=== PATIENT | female | born 1965 | race Caucasian/White ===

== ENCOUNTER 2020-06-12 22:19 | Outpatient (CLI) | payer OTHER | END 2020-06-12 22:20 | disposition home or self-care (01) | LOC: COV 22:19 | PROVIDERS: ATTEND Family Medicine | DX: R11.0 Nausea (principal); Z20.828 Contact with and (suspected) exposure to other viral communicable diseases ==

== ENCOUNTER 2021-07-22 08:00 | Outpatient (CLI) | payer OTHER | END 2021-07-22 23:59 | LOC: LAB 08:00 | PROVIDERS: ATTEND Internal Medicine | DX: Z20.822 Contact with and (suspected) exposure to COVID-19 (principal) ==

== ENCOUNTER 2022-11-03 14:25 | Outpatient (CLI) | payer BC ==
--- NOTE | 2022-11-03 14:28 | XRAY Report ---
PROCEDURE: Shoulder 3 View RT INDICATIONS: RIGHT SHOULDER PAIN TECHNIQUE: 3 views of the shoulder were acquired. COMPARISON: None. FINDINGS: Bones: No fractures or dislocations. No suspicious bony lesions. Visualized ribs appear intact. Mild acromioclavicular degenerative narrowing. Soft tissues: No suspicious soft tissue calcifications. IMPRESSION: Mild acromioclavicular degenerative narrowing. Reviewed by: Yojana Deleon MD on 11/03/2022 2:27 PM PDT Approved by: Yojana Deleon MD on 11/03/2022 2:27 PM PDT Station ID: [id number]
== END 2022-11-03 14:26 | disposition home or self-care (01) ==
LOC: DI.WOS 14:25
PROVIDERS: ATTEND Physician Assistant Surgical
DX: M19.011 Primary osteoarthritis, right shoulder (principal)

== ENCOUNTER 2022-11-11 12:52 | Day surgery (SDC) | payer BC ==
[2022-11-11] MEDS ORDERED: LACTATED RINGERS 1,000 ML IV ONE ×2 (13:00→15:16)
--- NOTE | 2022-11-11 14:04 | ANESTHESIA ---
Pre-Anesthesia VS, & Labs - Diagnosis GERD, screening exam - Procedure GERD and screening exam Vital Signs: Temp Pulse Resp BP Pulse Ox O2 Flow Rate 36.4 C L 98 16 158/104 H 96 11/11/22 13:01 11/11/22 13:01 11/11/22 13:01 11/11/22 13:01 11/11/22 13:01 Height: 5 ft 4 in Weight (kg): 92.4 kg Body Mass Index: 34.9 BMI Classification: Obese - NPO >8 hours - Is Patient ?: No Home Medications and Allergies Home Medications: Ambulatory Orders No Known Home Medications 11/10/22 No Known Home Medications 11/10/22 Allergies/Adverse Reactions: Allergies Allergy/AdvReac Type Severity Reaction Status Date / Time No Known Drug Allergies Allergy Verified 11/10/22 13:52 Anes History & Medical History - Anesthetic History Anesthesia Complications: reports: No previous complications - Medical History Cardiovascular: reports: None Pulmonary: reports: None Gastrointestinal: reports: GERD (at night, takes tums prn) Urinary: reports: None Neuro: reports: None Musculoskeletal: reports: None Endocrine/Autoimmune: reports: None Blood Disorders: reports: None Skin: reports: None Smoking Status: Never smoker Psychosocial: reports: No issues indicated History of Cancer?: No - Surgical History General: reports: Other (parotid gland removal) Eyes Ears Nose Throat (EENT): reports: Tonsil/Adenoidectomy Gynecologic: reports: section Exam General: Alert, Oriented x3, Cooperative, No acute distress Dental: WNL Mouth Openin Fingerbreadth Neck Mobility: Normal Mallampati classification: II Thyromental Distance: 4-6 cm Mental/Cognitive Status: Alert/Oriented X3, Normal for patient Plan Anesthesia Type: General, Total IV Consent for Procedure(s) Verified and Reviewed: Yes Code Status: Attempt Resuscitation ASA classification: 2-Mild systemic disease Is this case an emergency?: No
[2022-11-11] MEDS ORDERED: MIDAZOLAM 2 MG/2 ML VIAL ONE (14:27)
[2022-11-11] MEDS ORDERED: PROPOFOL 500 MG/50 ML 500 MG/50 ML VIAL ONE (14:31)
[2022-11-11] MEDS ORDERED: PROPOFOL 200 MG/20 ML VIAL IVP ONE (14:40)
--- NOTE | 2022-11-11 15:44 | ANESTHESIA POST OP EVALUATION ---
Anesthesia Post Eval - Post Anesthesia Eval Vitals: Last Vital Signs Temp 36.0 C L 11/11/22 15:22 Pulse 84 11/11/22 15:29 Resp 16 11/11/22 15:29 BP 130/84 H 11/11/22 15:29 Pulse Ox 98 11/11/22 15:29 O2 Flow Rate CV Function Including HR & BP: Stable Pain Control: Satisfactory Nausea & Vomiting: Negative Mental Status: Baseline Respiratory Status: Airway Patent Hydration Status: Satisfactory Anesthesia Complications: None
[2022-11-11 15:56] VITALS: BP 123/90
== END 2022-11-11 12:53 | disposition home or self-care (01) ==
LOC: SDS 12:52
PROVIDERS: ATTEND Surgery
PROC: 0DBK8ZZ Excision of Ascending Colon, Via Natural or Artificial Opening Endoscopic (ICD-10-PCS; 2022-11-11)
PROC: 0DBM8ZZ Excision of Descending Colon, Via Natural or Artificial Opening Endoscopic (ICD-10-PCS; 2022-11-11)
PROC: 0DB58ZX Excision of Esophagus, Via Natural or Artificial Opening Endoscopic, Diagnostic (ICD-10-PCS; principal; 2022-11-11 14:15)
PROC: 0DB78ZX Excision of Stomach, Pylorus, Via Natural or Artificial Opening Endoscopic, Diagnostic (ICD-10-PCS; 2022-11-11 14:15)
DX: Z12.11 Encounter for screening for malignant neoplasm of colon (principal); K21.00 Gastro-esophageal reflux disease with esophagitis, without bleeding; K44.9 Diaphragmatic hernia without obstruction or gangrene; R10.13 Epigastric pain; D12.2 Benign neoplasm of ascending colon; D12.4 Benign neoplasm of descending colon; E66.9 Obesity, unspecified; Z68.34 Body mass index [BMI] 34.0-34.9, adult
CPT/HCPCS: 43239; 45380; 45385; J7120

== ENCOUNTER 2023-01-21 12:43 | Outpatient (CLI) | payer BC ==
[2023-01-21 13:11] LABS: ESTIMATED AVERAGE GLUCOSE 120 mg/dL (70-100); HEMOGLOBIN A1c% 5.8 % (4.27-6.07)
[2023-01-21 13:12] LABS: CALCIUM 9.1 mg/dL (8.5-10.3); POTASSIUM 4.1 mmol/L (3.5-5.0); URIC ACID 7.3 mg/dL (2.6-7.2)
[2023-01-21 13:30] LABS: THYROID STIMULATING HORMONE 2.73 uIU/mL (0.34-5.60)
[2023-01-21 13:59] LABS: FOLLICLE STIMULATING HORMONE 35.06 mIU/mL
== END 2023-01-21 12:44 | disposition home or self-care (01) ==
LOC: LAB 12:43
PROVIDERS: ATTEND Internal Medicine
DX: M79.676 Pain in unspecified toe(s) (principal); R20.0 Anesthesia of skin
CPT/HCPCS: 36415; 80048; 82607; 83001; 83036; 84443; 84550

== ENCOUNTER 2023-08-05 15:02 | Outpatient (CLI) | payer BC ==
--- NOTE | 2023-08-06 11:48 | Mammography Report ---
BILATERAL DIGITAL SCREENING MAMMOGRAM 3D/2D: 08/05/2023 CLINICAL: Baseline exam. Routine screening. No prior exams were available for comparison. Patient does not remember location of priors. Both breasts are heterogeneously dense, which may obscure small masses (category c / 51-75% glandular tissue). There is a possible focal asymmetry in the right breast at 11 o'clock middle depth. There is an oval focal asymmetry in the left breast at 3 o'clock middle depth. No other significant masses or calcifications are seen in either breast. Other small oval circumscri bed masses are presumed benign. IMPRESSION: INCOMPLETE: NEEDS ADDITIONAL IMAGING EVALUATION The possible focal asymmetry in the right breast at 11 o'clock middle depth is indeterminate. Additi onal views with possible ultrasound are recommended. The oval focal asymmetry in the left breast at 3 o'clock middle depth is indeterminate. Additional v iews with possible ultrasound are recommended. Based on the Tyrer Cuzick model (a risk assessment model) the patients lifetime risk is 15.2% and her 10 year risk is 5.0%. According to the ACR, ACS, and NCCN guidelines, an annual breast MRI exam jessica g with mammogram is recommended if the patients lifetime risk is 20% or greater. This exam was interpreted at Station ID: [id number]. NOTE: For mammograms, a report in lay terms will be sent to the patient. Approximately 15% of breast malignancies will not be visualized mammographically. In the management of a palpable breast mass, a negative mammogram must not discourage biopsy of a clinically suspicious lesion. Electronically Signed By: Carlos Moctezuma M.D. lc/:08/06/2023 10:44:26 ACR BI-RADS Category 0: Incomplete 3340F PARENCHYMAL PATTERN: (D) - The breast(s) demonstrate(s) heterogeneously dense fibroglandular paranay ma. BI-RADS CATEGORY: (0) - 0 Mammo and US [id number] Immediate follow-up LATERALITY: (B)
== END 2023-08-05 15:03 | disposition home or self-care (01) ==
LOC: DI 15:02
PROVIDERS: ATTEND Internal Medicine
DX: Z12.31 Encounter for screening mammogram for malignant neoplasm of breast (principal); R92.333 Mammographic heterogeneous density, bilateral breasts; R92.8 Other abnormal and inconclusive findings on diagnostic imaging of breast

== ENCOUNTER 2023-08-26 09:52 | Outpatient (CLI) | payer BC ==
--- NOTE | 2023-08-27 10:32 | Ultrasound Report ---
LIMITED ULTRASOUND OF RIGHT BREAST: 08/26/2023 CLINICAL: Patient returns today to evaluate asymmetries in bilateral breasts. Comparison is made to exams dated: 08/26/2023 ultrasound, 08/26/2023 mammogram, and 08/05/2023 mammogram - [facility]. Real-time ultrasound of the right breast 9 o'clock region was performed on the areas of interest. Gr ay scale images of the real-time examination were reviewed. IMPRESSION: PROBABLY BENIGN There is no sonographic abnormality seen in the right breast to correspond with the mammography focal asymmetry. A follow-up mammogram and possible ultrasound in 6 months is recommended to demonstrate stability. This exam was interpreted at Station ID: [id number]. Electronically Signed By: Nia Wise M.D. lk/:08/27/2023 10:27:55 Entry: - 08/27/2023 10:27:55 Ultrasound BI-RADS: 3 Probably benign BI-RADS CATEGORY: (3) - 3 Mammo and US [id number] 6 month follow-up LATERALITY: (B)
--- NOTE | 2023-08-27 10:32 | Mammography Report ---
BILATERAL DIGITAL DIAGNOSTIC MAMMOGRAM 3D/2D WITH SPOT COMPRESSION: 08/26/2023 CLINICAL: Patient returns today to evaluate asymmetries in bilateral breasts. Comparison is made to exam dated: 08/05/2023 mammogram - [facility]. Both breasts are heterogeneously dense, which may obscure small masses (category c / 51-75% glandular tissue). The focal asymmetry in the right breast at 9 o'clock middle depth is seen in additional views. The oval focal asymmetry in the left breast at 3 o'clock middle depth is seen in additional views. No other significant masses or calcifications are seen in either breast. IMPRESSION: INCOMPLETE: NEEDS ADDITIONAL IMAGING EVALUATION The focal asymmetry in the right breast at 9 o'clock middle depth is indeterminate. The oval focal asymmetry in the left breast at 3 o'clock middle depth is indeterminate. A targeted ultrasound of the bilateral breasts is recommended and will be performed immediately follo wing this exam. Based on the Tyrer Cuzick model (a risk assessment model) the patient's lifetime risk is 15.2% and he r 10 year risk is 5.0%. According to the ACR, ACS, and NCCN guidelines, an annual breast MRI exam shahbaz ng with mammogram is recommended if the patient's lifetime risk is 20% or greater. This exam was interpreted at Station ID: [id number]. NOTE: For mammograms, a report in lay terms will be sent to the patient. Approximately 15% of breast malignancies will not be visualized mammographically. In the management of a palpable breast mass, a negative mammogram must not discourage biopsy of a clinically suspicious lesion. Electronically Signed By: Nia Wise M.D. lk/:08/26/2023 10:44:07 ACR BI-RADS Category 0: Incomplete 3340F PARENCHYMAL PATTERN: (D) - The breast(s) demonstrate(s) heterogeneously dense fibroglandular parenchy ma. BI-RADS CATEGORY: (0) - 0 Ultrasound [id number] Immediate follow-up LATERALITY: (B)
--- NOTE | 2023-08-27 10:32 | Ultrasound Report ---
LIMITED ULTRASOUND OF LEFT BREAST: 08/26/2023 CLINICAL: Patient returns today to evaluate asymmetries in bilateral breasts. Comparison is made to exams dated: 08/26/2023 mammogram and 08/05/2023 mammogram - [facility]. Color flow and real-time ultrasound of the left breast 3 o'clock region were performed on the areas of interest. Cash scale images of the real-time examination were reviewed. There is an irregular cyst in the left breast at 3 o'clock middle depth. This irregular cyst is hypo echoic with a well-defined boundary, internal echoes, and posterior acoustic enhancement. This corre lates with mammography findings. Color flow imaging demonstrates that there is no vascularity presen t. IMPRESSION: PROBABLY BENIGN The irregular cyst in the left breast is consistent with a complicated cyst and is probably benign. A follow-up mammogram and an ultrasound in 6 months is recommended to demonstrate stability. This exam was interpreted at Station ID: [id number]. Electronically Signed By: Nia burns/:08/27/2023 10:25:57 Entry: - 08/27/2023 10:25:57 Ultrasound BI-RADS: 3 Probably benign BI-RADS CATEGORY: (3) - 3 Mammo and [place] [id number] 6 month follow-up LATERALITY: (B)
== END 2023-08-26 09:53 | disposition home or self-care (01) ==
LOC: DI 09:52
PROVIDERS: ATTEND Internal Medicine
DX: R92.333 Mammographic heterogeneous density, bilateral breasts (principal); N60.02 Solitary cyst of left breast